=== PATIENT | female | born 1975 | race Caucasian/White ===

== ENCOUNTER 2016-10-22 01:29 | Emergency (ER) | payer OTHER ==
[~2016-10-22 01:29] MED LIST: ADV250/50 INH; ALBUTEROL SULFAT3 ML IH; ATENOLOL100 MG PO; BUTALBITAL ACET1 CAP PO; IMDUR30 MG PO; LAC PO; LEVAQUIN750 MG PO; MEDDP PO; MUCINEX600 MG PO; NOR10T PO; PRILOSEC20 MG PO; PROPRANOLOL HCL40 MG PO; PROVENTIL0.09 MG/A1 INH; RITALIN20 MG PO; SPIRIVA18 MC1 INH; SUMATRIPTA6 MG/0.51 SC; TOPIRAMATE25 M3 PO; ZESTRIL40 MG PO
[2016-10-22 03:17] VITALS: BP 156/89
== END 2016-10-22 03:13 | disposition home or self-care (01) ==
LOC: ED 01:29
DX: M79.644 Pain in right finger(s) (principal); J45.909 Unspecified asthma, uncomplicated; I10 Essential (primary) hypertension; G43.909 Migraine, unspecified, not intractable, without status migrainosus; Z88.0 Allergy status to penicillin; Z88.1 Allergy status to other antibiotic agents; Z98.890 Other specified postprocedural states
CPT/HCPCS: J1200; J2930

== ENCOUNTER 2016-11-01 19:10 | Emergency (ER) | payer OTHER ==
[2016-11-01 21:17] LABS: BASOPHIL % 0.5 % (0-2); PLATELET COUNT 240 x10^3mcL (130-400); RED CELL DISTRIBUTION WIDTH 13.7 % (11.5-14.5)
[2016-11-01 21:31] LABS: CALCIUM 9.3 mg/dL (8.5-10.1); CARBON DIOXIDE 27.3 mmol/L (21-32); CHLORIDE SERUM 104 mmol/L (98-107); GFR1 > 60 mL/min; GLUCOSE SERUM 101 mg/dL (74-106); POTASSIUM SERUM 3.6 mmol/L (3.5-5.1); SODIUM SERUM 142 mmol/L (136-145)
[2016-11-01 23:08] VITALS: BP 140/108
== END 2016-11-01 23:08 | disposition home or self-care (01) ==
LOC: ED 19:10
PROVIDERS: Emergency Medicine
DX: S16.1XXA Strain of muscle, fascia and tendon at neck level, initial encounter (principal); R20.2 Paresthesia of skin; I10 Essential (primary) hypertension; G43.909 Migraine, unspecified, not intractable, without status migrainosus; J45.909 Unspecified asthma, uncomplicated; Z79.891 Long term (current) use of opiate analgesic; Z79.899 Other long term (current) drug therapy; Z88.0 Allergy status to penicillin; Z88.1 Allergy status to other antibiotic agents; Z88.2 Allergy status to sulfonamides; X58.XXXA Exposure to other specified factors, initial encounter; Y93.89 Activity, other specified; Y92.89 Other specified places as the place of occurrence of the external cause; Y99.8 Other external cause status
CPT/HCPCS: J1885; J2270; J7030

== ENCOUNTER → 2017-05-10 | Outpatient (CLI) | payer OTHER ==
[2017-05-10 08:57] LABS: BASOPHIL % 0.4 % (0-2); PLATELET COUNT 222 x10^3mcL (130-400); RED CELL DISTRIBUTION WIDTH 14.4 % (11.5-14.5)
[2017-05-10 09:23] LABS: T3 TOTAL 1.42 ng/mL
[2017-05-10 17:31] LABS: CALCIUM 8.9 mg/dL (8.5-10.1); CARBON DIOXIDE 29.5 mmol/L (21-32); CHLORIDE SERUM 105 mmol/L (98-107); CHOLESTEROL 171 mg/dL (<200); CHOLESTEROL/HDL RATIO 3.4; CREATININE SERUM 0.9 mg/dL (0.6-1.0); GFR1 > 60 mL/min; GLUCOSE SERUM 108 mg/dL (74-106); HDL CHOLESTEROL 51 mg/dL (40-60); POTASSIUM SERUM 3.3 mmol/L (3.5-5.1); SODIUM SERUM 143 mmol/L (136-145); TRIGLYCERIDES 82 mg/dL (<150)
[2017-05-10 17:39] LABS: FREE T4 0.86 ng/dL (0.76-1.46); FREE THYROXINE INDEX 2.6 ug/dL (1.4-4.5); T4(THYROXINE) 7.5 ug/dL (4.7-13.3)
[2017-05-11 09:19] LABS: ESTRADIOL 98.7 pg/mL (.)
== END | disposition home or self-care (01) ==
LOC: LB 08:15
PROVIDERS: Family Medicine
DX: I10 Essential (primary) hypertension (principal)
CPT/HCPCS: 82670; 82672; 84439

== ENCOUNTER → 2017-05-16 | Outpatient (CLI) | payer OTHER | END | disposition home or self-care (01) | LOC: RD 14:45 | DX: J44.9 Chronic obstructive pulmonary disease, unspecified (principal) ==

== ENCOUNTER → 2017-09-26 | Outpatient (CLI) | payer OTHER ==
[2017-09-27 08:21] LABS: ESTRADIOL 336.1 pg/mL (.)
== END | disposition home or self-care (01) ==
LOC: LB 07:47
DX: N95.1 Menopausal and female climacteric states (principal)
CPT/HCPCS: 82670

== ENCOUNTER 2018-06-18 16:52 | Emergency (ER) | payer OTHER | END 2018-06-18 18:00 | disposition left against medical advice (07) | LOC: ED 16:52 | DX: Z53.21 Procedure and treatment not carried out due to patient leaving prior to being seen by health care provider (principal) ==

== ENCOUNTER → 2018-07-08 | Outpatient (CLI) | payer OTHER | END | disposition home or self-care (01) | LOC: MA 12:11 | PROC: BH02ZZZ Plain Radiography of Bilateral Breasts (ICD-10-PCS; principal; 2018-07-08) | DX: Z12.31 Encounter for screening mammogram for malignant neoplasm of breast (principal) | CPT/HCPCS: 77067 ==

== ENCOUNTER → 2018-11-21 | Outpatient (CLI) | payer OTHER | END | disposition home or self-care (01) | LOC: RD 17:41 | DX: M79.671 Pain in right foot (principal) ==

== ENCOUNTER → 2018-12-11 | Outpatient (CLI) | payer OTHER ==
[2018-12-11 14:12] LABS: BASOPHIL % 1.1 % (0-2); PLATELET COUNT 201 x10^3mcL (130-400); RED CELL DISTRIBUTION WIDTH 13.8 % (11.5-14.5)
[2018-12-11 14:31] LABS: ALBUMIN 3.5 g/dL (3.4-5.0); ALKALINE PHOSPHATASE 58 U/L (46-116); ALT/SGPT 26 U/L (14-59); AST/SGOT 13 U/L (15-37); BILIRUBIN TOTAL 0.3 mg/dL (0.20-1.00); CALCIUM 9.3 mg/dL (8.5-10.1); CARBON DIOXIDE 32.5 mmol/L (21-32); CHLORIDE SERUM 107 mmol/L (98-107); CHOLESTEROL 186 mg/dL (<200); CHOLESTEROL/HDL RATIO 3.6; GFR1 > 60 mL/min; GLUCOSE SERUM 113 mg/dL (74-106); HDL CHOLESTEROL 52 mg/dL (40-60); SODIUM SERUM 145 mmol/L (136-145); TOTAL PROTEIN, SERUM 7.2 g/dL (6.4-8.2); TRIGLYCERIDES 105 mg/dL (<150)
== END | disposition home or self-care (01) ==
LOC: LB 13:47
DX: Z00.00 Encounter for general adult medical examination without abnormal findings (principal); I10 Essential (primary) hypertension

== ENCOUNTER → 2019-03-25 | Outpatient (CLI) | payer OTHER ==
[2019-03-25 12:07] LABS: BASOPHIL % 0.4 % (0-2); PLATELET COUNT 188 x10^3mcL (130-400); RED CELL DISTRIBUTION WIDTH 13.3 % (11.5-14.5)
[2019-03-25 12:30] LABS: ALBUMIN 3.9 g/dL (3.4-5.0); ALKALINE PHOSPHATASE 64 U/L (46-116); ALT/SGPT 32 U/L (14-59); AST/SGOT 17 U/L (15-37); BILIRUBIN TOTAL 0.44 mg/dL (0.20-1.00); CALCIUM 8.9 mg/dL (8.5-10.1); CARBON DIOXIDE 26.4 mmol/L (21-32); CHLORIDE SERUM 106 mmol/L (98-107); CHOLESTEROL 173 mg/dL (<200); CHOLESTEROL/HDL RATIO 4.1; CREATININE SERUM 0.8 mg/dL (0.6-1.0); FREE T4 0.93 ng/dL (0.76-1.46); GFR1 > 60 mL/min; GLUCOSE SERUM 102 mg/dL (74-106); HDL CHOLESTEROL 42 mg/dL (40-60); POTASSIUM SERUM 3.7 mmol/L (3.5-5.1); SODIUM SERUM 142 mmol/L (136-145); TOTAL PROTEIN, SERUM 7.7 g/dL (6.4-8.2); TRIGLYCERIDES 68 mg/dL (<150); URIC ACID 3.1 mg/dL (2.6-6.0)
[2019-03-25 13:00] LABS: GAMMA GLUTAMYL TRANSPEPTIDASE 28 U/L (5-85)
[2019-03-26 08:09] LABS: GLUCOSE FASTING 93 mg/dL (70-110)
[2019-03-26 13:05] LABS: PTH INTACT 26 pg/mL (15-65)
== END | disposition home or self-care (01) ==
LOC: LB 11:25
DX: E78.00 Pure hypercholesterolemia, unspecified (principal); R53.81 Other malaise
CPT/HCPCS: 84425; 84439

== ENCOUNTER → 2019-04-03 | Outpatient (CLI) | payer OTHER | END | disposition home or self-care (01) | LOC: LB 12:30 | DX: Z01.818 Encounter for other preprocedural examination (principal) ==

== ENCOUNTER → 2019-07-03 | Outpatient (CLI) | payer OTHER | END | disposition home or self-care (01) | LOC: LB 12:53 | DX: Z87.891 Personal history of nicotine dependence (principal) ==

== ENCOUNTER → 2019-08-05 | Outpatient (CLI) | payer OTHER | END | disposition home or self-care (01) | LOC: MA 08:39 | PROC: BH02ZZZ Plain Radiography of Bilateral Breasts (ICD-10-PCS; principal; 2019-08-05) | DX: Z01.419 Encounter for gynecological examination (general) (routine) without abnormal findings (principal); Z12.31 Encounter for screening mammogram for malignant neoplasm of breast | CPT/HCPCS: 77067 ==

== ENCOUNTER → 2019-10-09 | Outpatient (CLI) | payer OTHER ==
[2019-10-09 13:16] LABS: BASOPHIL % 0.5 % (0-2); PLATELET COUNT 200 x10^3mcL (130-400); RED CELL DISTRIBUTION WIDTH 13.5 % (11.5-14.5)
[2019-10-09 13:45] LABS: ALBUMIN 3.9 g/dL (3.4-5.0); ALKALINE PHOSPHATASE 59 U/L (46-116); ALT/SGPT 21 U/L (14-59); AST/SGOT 11 U/L (15-37); CALCIUM 9.2 mg/dL (8.5-10.1); CARBON DIOXIDE 29.2 mmol/L (21-32); CHLORIDE SERUM 104 mmol/L (98-107); CHOLESTEROL 180 mg/dL (<200); CHOLESTEROL/HDL RATIO 3.1; CREATININE SERUM 0.8 mg/dL (0.6-1.0); GAMMA GLUTAMYL TRANSPEPTIDASE 19 U/L (5-85); GFR1 > 60 mL/min; GLUCOSE SERUM 89 mg/dL (74-106); HDL CHOLESTEROL 59 mg/dL (40-60); SODIUM SERUM 140 mmol/L (136-145); TOTAL PROTEIN, SERUM 7.4 g/dL (6.4-8.2); TRIGLYCERIDES 111 mg/dL (<150); URIC ACID 2.9 mg/dL (2.6-6.0)
[2019-10-10 09:05] LABS: C-PEPTIDE 2.7 ng/mL (1.1-4.4)
== END | disposition home or self-care (01) ==
LOC: LB 12:18
DX: E78.00 Pure hypercholesterolemia, unspecified (principal); R53.81 Other malaise; E78.1 Pure hyperglyceridemia; I10 Essential (primary) hypertension; K21.9 Gastro-esophageal reflux disease without esophagitis; E11.9 Type 2 diabetes mellitus without complications
CPT/HCPCS: 84425; 84439

== ENCOUNTER 2019-12-31 16:08 | Emergency (ER) | payer OTHER, SELFPAY ==
[~2019-12-31] VITALS: Ht 175.3 cm; Wt 104.3 kg
[2019-12-31 16:16] VITALS: BP 193/129; Ht 175.3 cm; Wt 104.3 kg
== END 2019-12-31 16:35 | disposition home or self-care (01) ==
LOC: ED 16:08
DX: Z03.818 Encounter for observation for suspected exposure to other biological agents ruled out (principal); J45.909 Unspecified asthma, uncomplicated; I10 Essential (primary) hypertension; G43.909 Migraine, unspecified, not intractable, without status migrainosus; Z13.9 Encounter for screening, unspecified; Z90.711 Acquired absence of uterus with remaining cervical stump; Z88.0 Allergy status to penicillin; Z88.2 Allergy status to sulfonamides; Z88.1 Allergy status to other antibiotic agents
CPT/HCPCS: U0003-CS

== ENCOUNTER 2020-01-09 14:45 | Emergency (ER) | payer OTHER, SELFPAY ==
[~2020-01-09] VITALS: Ht 175.3 cm; Wt 104.3 kg
[2020-01-09 14:46] VITALS: Ht 175.3 cm; Wt 104.3 kg
[2020-01-09 15:30] VITALS: BP 198/118
== END 2020-01-09 15:30 | disposition home or self-care (01) ==
LOC: ED 14:45
DX: R51 Headache (principal); J45.909 Unspecified asthma, uncomplicated; I10 Essential (primary) hypertension; G43.909 Migraine, unspecified, not intractable, without status migrainosus; Z88.0 Allergy status to penicillin; Z88.2 Allergy status to sulfonamides; Z88.8 Allergy status to other drugs, medicaments and biological substances; Z76.0 Encounter for issue of repeat prescription; Z20.828 Contact with and (suspected) exposure to other viral communicable diseases
CPT/HCPCS: U0003-CS

== ENCOUNTER 2020-01-10 10:34 | Emergency (ER) | payer OTHER ==
[~2020-01-10] VITALS: Ht 175.3 cm; Wt 108.4 kg
[2020-01-10 10:42] VITALS: Ht 175.3 cm; Wt 108.4 kg
[2020-01-10 11:56] VITALS: BP 175/102
== END 2020-01-10 12:05 | disposition home or self-care (01) ==
LOC: ED 10:34
DX: I10 Essential (primary) hypertension (principal); J45.909 Unspecified asthma, uncomplicated; Z76.0 Encounter for issue of repeat prescription; Z88.0 Allergy status to penicillin; Z88.2 Allergy status to sulfonamides; Z98.890 Other specified postprocedural states

== ENCOUNTER → 2020-01-27 | Outpatient (CLI) | payer OTHER ==
[2020-01-27 13:12] LABS: ALBUMIN 3.7 g/dL (3.4-5.0); BILIRUBIN TOTAL 0.28 mg/dL (0.20-1.00); CARBON DIOXIDE 33.6 mmol/L (21-32); CREATININE SERUM 1.2 mg/dL (0.6-1.0); POTASSIUM SERUM 4.4 mmol/L (3.5-5.1); TOTAL PROTEIN, SERUM 7.4 g/dL (6.4-8.2)
== END | disposition home or self-care (01) ==
LOC: LB 12:16
DX: I25.10 Atherosclerotic heart disease of native coronary artery without angina pectoris (principal); E04.0 Nontoxic diffuse goiter; Z79.899 Other long term (current) drug therapy

== ENCOUNTER 2020-03-18 22:34 | Emergency (ER) | payer OTHER ==
[~2020-03-18] VITALS: Ht 172.7 cm; Wt 103.9 kg
[2020-03-18 22:46] VITALS: Ht 172.7 cm; Wt 103.9 kg
[2020-03-19 00:34] VITALS: BP 157/84
== END 2020-03-19 00:34 | disposition home or self-care (01) ==
LOC: ED 22:34
DX: J45.909 Unspecified asthma, uncomplicated (principal); I10 Essential (primary) hypertension; G43.909 Migraine, unspecified, not intractable, without status migrainosus; Z20.828 Contact with and (suspected) exposure to other viral communicable diseases; Z88.0 Allergy status to penicillin; Z88.2 Allergy status to sulfonamides; Z88.1 Allergy status to other antibiotic agents

== ENCOUNTER 2020-04-10 00:55 | Emergency (ER) | payer OTHER ==
[~2020-04-10] VITALS: Ht 172.7 cm; Wt 96.6 kg
[2020-04-10 01:07] VITALS: Ht 172.7 cm; Wt 96.6 kg
[2020-04-10 01:53] LABS: BASOPHIL % 1.7 % (0-2); PLATELET COUNT 266 x10^3mcL (130-400); RED CELL DISTRIBUTION WIDTH 13.9 % (11.5-14.5)
[2020-04-10 02:34] LABS: CALCIUM 9.7 mg/dL (8.5-10.1); CARBON DIOXIDE 26.4 mmol/L (21-32); CHLORIDE SERUM 106 mmol/L (98-107); CREATININE SERUM 0.9 mg/dL (0.6-1.0); GFR1 > 60 mL/min; GLUCOSE SERUM 117 mg/dL (74-106); POTASSIUM SERUM 3.1 mmol/L (3.5-5.1); SODIUM SERUM 142 mmol/L (136-145)
[2020-04-10 02:38] LABS: ALBUMIN 3.9 g/dL (3.4-5.0); ALKALINE PHOSPHATASE 66 U/L (46-116); ALT/SGPT 31 U/L (14-59); AST/SGOT 21 U/L (15-37); BILIRUBIN TOTAL 0.39 mg/dL (0.20-1.00); LIPASE 180 IU/L (73-393); TOTAL PROTEIN, SERUM 7.8 g/dL (6.4-8.2)
[2020-04-10 04:19] VITALS: BP 178/101
== END 2020-04-10 04:19 | disposition home or self-care (01) ==
LOC: ED 00:55
PROVIDERS: Emergency Medicine
DX: R10.12 Left upper quadrant pain (principal); R11.2 Nausea with vomiting, unspecified; J45.909 Unspecified asthma, uncomplicated; I10 Essential (primary) hypertension; G43.909 Migraine, unspecified, not intractable, without status migrainosus; Z90.710 Acquired absence of both cervix and uterus; Z85.89 Personal history of malignant neoplasm of other organs and systems; Z85.41 Personal history of malignant neoplasm of cervix uteri; Z88.0 Allergy status to penicillin; Z88.2 Allergy status to sulfonamides; Z88.1 Allergy status to other antibiotic agents
CPT/HCPCS: J2270; J2405

== ENCOUNTER → 2020-04-12 | Outpatient (CLI) | payer OTHER ==
[2020-04-12 12:54] LABS: BASOPHIL % 0.5 % (0-2); PLATELET COUNT 264 x10^3mcL (130-400)
[2020-04-12 13:05] LABS: RED CELL DISTRIBUTION WIDTH 14.6 % (11.5-14.5)
[2020-04-12 13:09] LABS: ALBUMIN 3.9 g/dL (3.4-5.0); ALKALINE PHOSPHATASE 69 U/L (46-116); ALT/SGPT 25 U/L (14-59); AST/SGOT 21 U/L (15-37); BILIRUBIN TOTAL 0.4 mg/dL (0.20-1.00); CARBON DIOXIDE 28.5 mmol/L (21-32); CHLORIDE SERUM 105 mmol/L (98-107); CHOLESTEROL 175 mg/dL (<200); CHOLESTEROL/HDL RATIO 3.7; CREATININE SERUM 0.9 mg/dL (0.6-1.0); GFR1 > 60 mL/min; GLUCOSE SERUM 123 mg/dL (74-106); HDL CHOLESTEROL 47 mg/dL (40-60); POTASSIUM SERUM 3.3 mmol/L (3.5-5.1); SODIUM SERUM 139 mmol/L (136-145); TOTAL PROTEIN, SERUM 7.5 g/dL (6.4-8.2); TRIGLYCERIDES 102 mg/dL (<150); URIC ACID 2.5 mg/dL (2.6-6.0)
[2020-04-13 09:09] LABS: PTH INTACT 29 pg/mL (15-65)
== END | disposition home or self-care (01) ==
LOC: LB 12:10
DX: E78.00 Pure hypercholesterolemia, unspecified (principal); E78.1 Pure hyperglyceridemia; K21.9 Gastro-esophageal reflux disease without esophagitis; R53.83 Other fatigue; R53.81 Other malaise; K91.1 Postgastric surgery syndromes; E61.0 Copper deficiency
CPT/HCPCS: 82525; 84630

== ENCOUNTER 2020-04-28 15:17 | Emergency (ER) | payer OTHER ==
[~2020-04-28] VITALS: Ht 172.7 cm; Wt 90.7 kg
[2020-04-28 16:02] VITALS: Ht 172.7 cm; Wt 90.7 kg
[2020-04-28 16:57] VITALS: BP 162/99
[2020-04-29] MEDS ORDERED: AMBIEN10 MG PO (03:49)
[2020-04-29] MEDS ORDERED: REGLAN10 M1 PO (03:50)
== END 2020-04-28 16:57 | disposition left against medical advice (07) ==
LOC: ED 15:17
DX: Z53.21 Procedure and treatment not carried out due to patient leaving prior to being seen by health care provider (principal)

== ENCOUNTER 2020-04-28 22:46 | Emergency (ER) | payer OTHER ==
[~2020-04-28] VITALS: Ht 172.7 cm; Wt 90.7 kg
[2020-04-28 23:06] VITALS: Ht 172.7 cm; Wt 90.7 kg
[2020-04-29 00:26] LABS: BASOPHIL % 0.5 % (0-2); PLATELET COUNT 177 x10^3mcL (130-400)
[2020-04-29 00:31] LABS: RED CELL DISTRIBUTION WIDTH 14.9 % (11.5-14.5)
[2020-04-29 00:44] LABS: ALBUMIN 4.4 g/dL (3.4-5.0); ALKALINE PHOSPHATASE 67 U/L (46-116); ALT/SGPT 26 U/L (14-59); AST/SGOT 22 U/L (15-37); BILIRUBIN TOTAL 0.7 mg/dL (0.20-1.00); CALCIUM 9.5 mg/dL (8.5-10.1); CARBON DIOXIDE 26.6 mmol/L (21-32); CHLORIDE SERUM 101 mmol/L (98-107); CHOLESTEROL 151 mg/dL (<200); CHOLESTEROL/HDL RATIO 2.8; CREATININE SERUM 0.8 mg/dL (0.6-1.0); GFR1 > 60 mL/min; GLUCOSE SERUM 85 mg/dL (74-106); HDL CHOLESTEROL 53 mg/dL (40-60); LIPASE 86 IU/L (73-393); SODIUM SERUM 139 mmol/L (136-145); TOTAL PROTEIN, SERUM 7.6 g/dL (6.4-8.2); TRIGLYCERIDES 59 mg/dL (<150)
[2020-04-29 00:48] LABS: POTASSIUM SERUM 2.5 mmol/L (3.5-5.1)
[2020-04-29] MEDS ORDERED: AMBIEN10 MG PO (03:49)
[2020-04-29] MEDS ORDERED: REGLAN10 M1 PO (03:50)
[2020-04-29 04:43] LABS: MAGNESIUM 2.2 mg/dL (1.8-2.4); PHOSPHOROUS 3.6 mg/dL (2.5-4.9)
[2020-04-29 05:42] VITALS: BP 172/100
== END 2020-04-29 04:22 | disposition left against medical advice (07) ==
LOC: ED 22:46 → DU 04-29 03:50 → ED 04-29 03:50
PROVIDERS: Family Medicine; Specialist
DX: E87.6 Hypokalemia (principal); E86.0 Dehydration; R10.13 Epigastric pain; E66.9 Obesity, unspecified; J45.909 Unspecified asthma, uncomplicated; I10 Essential (primary) hypertension; Z98.84 Bariatric surgery status; G43.909 Migraine, unspecified, not intractable, without status migrainosus; Z98.890 Other specified postprocedural states; Z90.710 Acquired absence of both cervix and uterus; Z88.0 Allergy status to penicillin; Z88.1 Allergy status to other antibiotic agents; Z88.2 Allergy status to sulfonamides
CPT/HCPCS: 83880; J1885; J2405; J3475; J3480; J7030

== ENCOUNTER 2020-04-29 06:03 | Inpatient (IN) | payer OTHER ==
[~2020-04-29] VITALS: Ht 172.7 cm; Wt 93.5 kg
[~2020-04-29 06:03] MED LIST changes: +AMBIEN10 MG PO; +REGLAN10 M1 PO
[2020-04-29 06:13] VITALS: Ht 172.7 cm; Wt 93.5 kg
[2020-04-29 11:25] VITALS: BP 152/85
[2020-04-29 11:46] VITALS: BP 148/87
[2020-04-29 16:53] VITALS: BP 145/77
[2020-04-29 21:00] VITALS: BP 154/92
[2020-04-30 05:15] LABS: AMPHETAMINE QUAL UR POSITIVE (See below)
[2020-04-30 05:32] VITALS: BP 152/83
[2020-04-30 07:11] LABS: BASOPHIL % 0.5 % (0-2); PLATELET COUNT 147 x10^3mcL (130-400)
[2020-04-30 07:31] LABS: RED CELL DISTRIBUTION WIDTH 15.3 % (11.5-14.5)
[2020-04-30 07:35] LABS: CARBON DIOXIDE 25.2 mmol/L (21-32); CHLORIDE SERUM 107 mmol/L (98-107); CREATININE SERUM 0.6 mg/dL (0.6-1.0); GFR1 > 60 mL/min; GLUCOSE SERUM 81 mg/dL (74-106); POTASSIUM SERUM 3.6 mmol/L (3.5-5.1); SODIUM SERUM 140 mmol/L (136-145)
[2020-04-30 08:19] VITALS: BP 124/80
[2020-04-30 12:23] VITALS: BP 122/70
[2020-04-30 13:00] VITALS: BP 112/75
[2020-04-30 13:45] VITALS: BP 127/69
== END 2020-04-30 16:31 | disposition left against medical advice (07) | DRG 641 ==
LOC: ED 06:03 → DU 07:30
PROVIDERS: Internal Medicine Gastroenterology; ADMIT Family Medicine; ATTEND Family Medicine
PROC: 0DB58ZX Excision of Esophagus, Via Natural or Artificial Opening Endoscopic, Diagnostic (ICD-10-PCS; principal; 2020-04-29)
DX: E87.6 Hypokalemia (principal); Z96.641 Presence of right artificial hip joint; I10 Essential (primary) hypertension; G43.909 Migraine, unspecified, not intractable, without status migrainosus; R00.1 Bradycardia, unspecified; Z88.0 Allergy status to penicillin; Z20.828 Contact with and (suspected) exposure to other viral communicable diseases; Z90.710 Acquired absence of both cervix and uterus; Z88.1 Allergy status to other antibiotic agents; Z88.2 Allergy status to sulfonamides; Z85.41 Personal history of malignant neoplasm of cervix uteri
CPT/HCPCS: 43235; C1769; C9113; G0378; J0461; J1200; J1610; J2250; J2310; J2765; J3010; J3475; J3480; J3490; J3535; J7030; J8597

== ENCOUNTER → 2020-06-02 | Outpatient (CLI) | payer OTHER ==
[2020-06-02 13:23] LABS: BASOPHIL % 0.6 % (0.2-1.3); PLATELET COUNT 201 x10^3mcL (179-408)
[2020-06-02 13:28] LABS: ALBUMIN 4.2 g/dL (3.4-5.0); ALKALINE PHOSPHATASE 70 U/L (46-116); ALT/SGPT 31 U/L (14-59); AST/SGOT 20 U/L (15-37); BILIRUBIN TOTAL 0.6 mg/dL (0.20-1.00); CALCIUM 9.3 mg/dL (8.5-10.1); CARBON DIOXIDE 28.4 mmol/L (21-32); CHLORIDE SERUM 104 mmol/L (98-107); CHOLESTEROL 174 mg/dL (<200); CREATININE SERUM 0.7 mg/dL (0.6-1.0); GFR1 > 60 mL/min; GLUCOSE SERUM 91 mg/dL (74-106); SODIUM SERUM 144 mmol/L (136-145); TOTAL PROTEIN, SERUM 7.7 g/dL (6.4-8.2); TRIGLYCERIDES 87 mg/dL (<150); URIC ACID 2.9 mg/dL (2.6-6.0)
[2020-06-02 14:21] LABS: RED CELL DISTRIBUTION WIDTH 15.4 % (12.3-17.7)
[2020-06-02 16:31] LABS: CHOLESTEROL/HDL RATIO 2.8; HDL CHOLESTEROL 62 mg/dL (40-60)
[2020-06-02 16:32] LABS: POTASSIUM SERUM 2.9 mmol/L (3.5-5.1)
[2020-06-03 09:06] LABS: ESTRADIOL 78.6 pg/mL (.); PTH INTACT 28 pg/mL (15-65)
== END | disposition home or self-care (01) ==
LOC: LB 11:19
DX: E34.9 Endocrine disorder, unspecified (principal); E61.0 Copper deficiency; E78.1 Pure hyperglyceridemia; E61.1 Iron deficiency; K21.9 Gastro-esophageal reflux disease without esophagitis; R53.83 Other fatigue; R53.81 Other malaise; K91.1 Postgastric surgery syndromes
CPT/HCPCS: 82525; 82670; 84402; 84403; 84425; 84630